=== PATIENT | female | born 1955 | race Caucasian/White ===

== ENCOUNTER 2017-01-31 07:13 | Inpatient (IN) | payer BC ==
[2017-01-13 11:30] VITALS: Ht 165.1 cm; Wt 99.2 kg
--- NOTE | 2017-01-13 11:52 | PAT Medication Instructions ---
Service Date Jan 13, 2017. Current Home Medication List Cholecalciferol (Vitamin D3), 1 TAB PO HS Cyanocobalamin (Vitamin B-12), 1,000 MCG PO QAM Ferrous Sulfate (Iron), 45 MG PO QAM Meloxicam (Mobic), Unknown Dose PO HOLD ONE WEEK PRIOR Multivitamin (Multivitamin), 1 TAB PO HS Pantoprazole (Protonix), 40 MG PO QAM Potassium Chloride (Micro-K Ext Rel), 10 MEQ PO QAM Probiotic Product (Probiotic), 1 CAP PO HS Tramadol (Ultram), 50 MG PO Q8H PRN for Pain Valsartan/Hctz (Diovan Hct), 1 TAB PO QAM Medication Instructions For Your Scheduled Surgery - Hold the following medications 7 days prior to surgery per surgeon's instructions: Meloxicam (Mobic), Unknown Dose PO HOLD ONE WEEK PRIOR - Hold the following medications the morning of surgery: Valsartan/Hctz (Diovan Hct), 1 TAB PO QAM Cyanocobalamin (Vitamin B-12), 1,000 MCG PO QAM Ferrous Sulfate (Iron), 45 MG PO QAM Potassium Chloride (Micro-K Ext Rel), 10 MEQ PO QAM - Take the following medications the morning of surgery with a sip of water OTHERWISE NOTHING TO EAT OR DRINK AFTER MIDNIGHT: Tramadol (Ultram), 50 MG PO Q8H PRN for Pain (may take if needed up to 4 hours prior to surgery) Pantoprazole (Protonix), 40 MG PO QAM - Take the following medications as scheduled the night before surgery: Probiotic Product (Probiotic), 1 CAP PO HS Multivitamin (Multivitamin), 1 TAB PO HS Cholecalciferol (Vitamin D3), 1 TAB PO HS Tramadol (Ultram), 50 MG PO Q8H PRN for Pain If you have any questions please call us at [phone] or [phone] or [phone]
[2017-01-13 12:36] LABS: BASO % 0.5 %; BASO ABS # 0.03 K/uL (0-0.2); COMPLETE YES; EOS % 1.5 %; HEMATOCRIT 36.4 % (37-47); IG% 0.3 %; LYMPH % 20.2 %; LYMPH ABS # 1.32 K/uL (1.2-3.4); MEAN CELL VOLUME 87.1 fL (80-100); MEAN CORPUSCULAR HEMOGLOBIN 29.4 pg (25-34); MEAN CORPUSCULAR HGB CONC 33.8 g/dl (32-36); MEAN PLATELET VOLUME 10.1 fL (7.4-10.4); MONO % 6.4 %; NEUT % 71.1 %; PLATELET COUNT 271 K/uL (130-400); RED BLOOD COUNT 4.18 M/uL (4.2-5.4); WHITE BLOOD COUNT 6.53 K/uL (4.8-10.8)
[2017-01-13 12:36] LABS: URINE APPEARANCE CLEAR (CLEAR); URINE BILIRUBIN NEG (NEG); URINE COLOR YELLOW; URINE NITRITE NEG (NEG); URINE SPECIFIC GRAVITY 1.009 (1.000-1.030); UROBILINOGEN NEG (NEG)
[2017-01-13 12:37] LABS: MANUAL MICROSCOPIC REQUIRED? NO; REVIEW REQ? NO
[2017-01-13 12:47] LABS: PARTIAL THROMBOPLASTIN RATIO 1.2; PROTHROMBIN TIME (PATIENT) 10.7 SECONDS (9.0-12.0)
--- NOTE | 2017-01-13 12:52 | DIAGNOSTIC IMAGING REPORT ---
CHEST PREADMISSION(PA/LAT) CLINICAL HISTORY: Preoperative chest COMPARISON STUDY: No previous studies for comparison. FINDINGS: The cardiac and mediastinal contours are normal. There is no evidence of focal pulmonary consolidation. There is no evidence of failure. No pleural effusions are visualized.[ IMPRESSION: No active disease in the chest. Electronically signed by: George Sandhu M.D. 01/13/2017 12:50 PM Dictated Date/Time: 01/13/2017 12:49 PM
[2017-01-13 13:14] LABS: CALCIUM 9.5 mg/dl (8.5-10.1); CREATININE 0.89 mg/dl (0.60-1.20); POTASSIUM 3.7 mmol/L (3.5-5.1)
--- NOTE | 2017-01-30 11:10 | HISTORY & PHYSICAL EXAMINATION ---
DATE OF ADMISSION: 01/31/2017 CHIEF COMPLAINT: Right hip pain. HISTORY OF PRESENT ILLNESS: Rosa Isela is a 61-year-old female with a 1-year history of pain in her right hip. The patient rates her pain at 9/10. She has pain with her daily activities. She has limited standing and walking tolerance. Pain is worse with weightbearing. The patient is using a cane. She has had injections, anti-inflammatories, tramadol and home physical therapy without relief. She has failed conservative treatment and is scheduled for right total hip arthroplasty. PAST MEDICAL HISTORY: Hypertension, GERD, and osteoarthritis. She denies heart disease, diabetes or DVT. PAST SURGICAL HISTORY: Cholecystectomy and bilateral knee replacement. SOCIAL HISTORY: The patient denies alcohol or tobacco use. She lives in a 2-kraig home. 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 FAMILY HISTORY: Positive for DVT in her mom, status post trauma. MEDICATIONS: Diovan 80/12.5 mg daily, Protonix 40 mg, potassium 10 mEq, Mobic, tramadol 50 mg p.r.n., Centrum Silver 1 daily, vitamin D3, vitamin B12, iron and Culturelle. ALLERGIES: SULFA CAUSES HIVES. DEMEROL CAUSES NAUSEA AND VOMITING. REVIEW OF SYSTEMS: See HPI. Ten other systems reviewed, all negative. PHYSICAL EXAMINATION: VITAL SIGNS: Height 5 feet 5 inches, weight 219 pounds. BMI is 36. GENERAL: This is a well-developed and well-nourished female who is alert and oriented x3. Mood and affect are appropriate. HEENT: Normocephalic and atraumatic. Mucous membranes are moist and intact. NECK: Supple without lymphadenopathy. HEART: Regular rate and rhythm without murmurs, rubs or gallops. LUNGS: Clear to auscultation without wheezes or rhonchi. ABDOMEN: Soft and nontender. Bowel sounds are equal and active. EXTREMITIES: No ecchymosis, redness or warmth. Thigh and calf are soft and nontender. Log roll of the hip reproduces pain in the groin. Range of motion is decreased. She is neurovascularly intact with +5/5 strength. She walks with an antalgic gait. Right lower extremity is shortened. X-RAY: AP and lateral views show joint space narrowing and osteophyte formation. IMPRESSION: Degenerative joint disease, right hip. PLAN: The patient will be admitted for a direct anterior right total hip arthroplasty. We will plan on aspirin for DVT prophylaxis. She will have [facility]. PCP is Dr. Ryland Espinosa.
[~2017-01-31] VITALS: Ht 165.1 cm; Wt 99.2 kg
[2017-01-31] VITALS (9 sets, daily range): BP systolic 128–166; BP diastolic 76–94; PULSE 67–77; TEMP 36.3–36.5; O2SAT 94–100
[2017-01-31] MEDS: TRANEXAMIC ACID INJ 1,000 MG in SODIUM CHLORIDE 0.9% 100ML 100 ML IV SCH ×2 (06:00→06:30)
[~2017-01-31 07:13] MED LIST: ACETAMINOPHEN 500 MG TAB PO SCH; CEFAZOLIN 2000 MG/60 ML D5W 60 ML IV SCH; CHOL1000 PO; CYAN10005 PO; DEXAMETHASONE 4 MG TAB PO SCH; DVN80125 PO; FAMOTIDINE 20 MG TAB PO SCH; FERR1TAB61 PO; GABAPENTIN 300 MG CAP PO SCH; LACTATED RINGER'S 1000ML 1,000 ML IV SCH; LACTATED RINGER'S 1000ML 500 ML IV ONE; LACTATED RINGER'S 1000ML IV SCH; MELO7.5T6 PO; METOCLOPRAMIDE HCL 10 MG TAB PO SCH; MISCCAP80 PO; MULT-506 PO; OXYCODONE HCL 10 MG TABCR (OXYCONTIN) PO SCH; PANT40TA PO; POLYMYXIN B SULFATE 100,000 UNITS in NSS 100ML IR SCH; POTA10CA28 PO; ROPIVACAINE 5MG/ML 30 ML 150 MG, BUPIVACAINE/EPINEPHR 0.5% MPF 30 ML, KETOROLAC TROMETH... INFIL SCH; TRAM-10 PO; VANCOMYCIN INJ 400 MG in NSS 100ML IR SCH
[2017-01-31] MEDS ORDERED: BUPIVACAINE 0.5 % 5 MG/1 ML PF 10ML VIAL ONE (07:23)
[2017-01-31] MEDS ORDERED: DEXAMETHASONE SOD INJ 4 MG/ML VIAL ONE (07:46)
[2017-01-31] MEDS ORDERED: FENTANYL CITRATE INJ 50 MCG/1 ML 2 ML VIAL ONE (07:46)
[2017-01-31] MEDS ORDERED: MIDAZOLAM HCL 1 MG/ML 2ML VIAL ONE ×2 (07:46→07:47)
[2017-01-31] MEDS ORDERED: LIDOCAINE HCL 2% 2 ML VIAL (20MG/ML) ONE (07:46)
[2017-01-31] MEDS ORDERED: PROPOFOL IV EMULSION 10 MG/ML 20 ML VIAL IV ONE ×2 (07:46→11:19)
[2017-01-31] MEDS ORDERED: DOCU-94 PO (08:01)
[2017-01-31] MEDS ORDERED: [UNRECOGNIZED DRUG - REMARK] (08:02)
--- NOTE | 2017-01-31 08:51 | History & Physical Bridge Note ---
H&P Re-Evaluation Bridge Note: I have examined the patient, reviewed the History & Physical and in the interval since the performance of the History & Physical I have noted the following changes of clinical significance: No changes noted
[2017-01-31] MEDS ORDERED: POVIDONE-IODINE OP SOLN 30 ML BTL ONE (09:17)
[2017-01-31] MEDS ORDERED: ORTHO JOINT ANESTHETIC ONE (09:17)
[2017-01-31] MEDS ORDERED: BACITRACIN 50000 UNIT VIAL ONE (09:17)
[2017-01-31] MEDS ORDERED: ONDANSETRON INJ 2 MG/ML 2 ML VIAL ONE (10:36)
[2017-01-31] MEDS ORDERED: ONDANSETRON INJ 2 MG/ML 2 ML VIAL IV PRN ×2 (10:45→11:30)
[2017-01-31] MEDS ORDERED: PHENYLEPHRINE 100MCG/ML 5ML SYR IV PRN (10:45)
[2017-01-31] MEDS ORDERED: ATROPINE SULFATE 0.1 MG/ML 5ML SYR IV PRN (10:45)
[2017-01-31] MEDS ORDERED: KETOROLAC TROMETHAMINE 30 MG/ML VIAL IV. PRN (10:45)
[2017-01-31] MEDS ORDERED: HYDROmorphone INJ 2 MG/ML SYR/VIAL IV PRN (10:45)
[2017-01-31] MEDS ORDERED: EpHEDrine SULFATE INJ 50 MG/ML AMP IV PRN (10:45)
--- NOTE | 2017-01-31 11:24 | [facility] Post Operative Brief Note ---
Immediate Operative Summary Operative Date Jan 31, 2017. Pre-Operative Diagnosis Right Hip Degenerative Joint Disease Post-Operative Diagnosis Right Hip Degenerative Joint Disease OBESITY Procedure(s) Performed Right Total Hip Arthroplasty, Direct Anterior Approach Surgeon Dr. Ravi Rasmussen Digital Sales Representative Surgeon(s) Sarah Herrera PA-C Estimated Blood Loss 125 mL Findings DJD OBESE Specimens A: Right Femoral Head Complication(s) None Disposition Recovery Room / PACU
[2017-01-31] MEDS ORDERED: ALUMINUM/MAGNESIUM/SIMETH (MAALOX MAX) 30 ML UDC PO PRN (11:30)
[2017-01-31] MEDS ORDERED: METOCLOPRAMIDE HCL INJ 5 MG/ML 2 ML VIAL IV PRN (11:30)
[2017-01-31] MEDS ORDERED: SOD PHOSPHATE/SOD BIPHOSPHATE ENEMA 132 ML BTL PR PRN (11:30)
[2017-01-31] MEDS ORDERED: OXYCODONE HCL IR 5 MG TAB (IMMEDIATE RELEASE) PO PRN (11:30)
[2017-01-31] MEDS ORDERED: MoRPHine SULFATE 2 MG/ML CARP IV PRN (11:30)
[2017-01-31] MEDS ORDERED: ZOLPIDEM TARTRATE 5 MG TAB PO PRN (11:30)
[2017-01-31] MEDS ORDERED: BISACODYL 10 MG SUPP PR PRN (11:30)
[2017-01-31] MEDS ORDERED: MAGNESIUM HYDROXIDE SUSP 30 ML UDC PO PRN (11:30)
[2017-01-31] MEDS ORDERED: DiphenhydrAMINE HCL 50 MG/ML VIAL IV PRN (11:30)
--- NOTE | 2017-01-31 12:41 | DIAGNOSTIC IMAGING REPORT ---
SINGLE VIEW PELVIS; SINGLE VIEW RIGHT HIP CLINICAL HISTORY: Postoperative examination. FINDINGS: An AP portable view of the hips and pelvis with a crosstable lateral portable view of the right hip are obtained. A bipolar right hip arthroplasty is in near-anatomic alignment. A single cortical lag screw transfixes the acetabular cup. No acute fracture is identified. There are expected postoperative changes overlying the right hip including subcutaneous gas, a surgical drain, and soft tissue swelling. Moderate arthritic change is seen in the left hip. Sclerotic change is noted in the sacroiliac joints and pubic symphysis. There are numerous pelvic phlebolith. IMPRESSION: Expected postoperative findings status post right hip arthroplasty. No acute fracture is seen. Electronically signed by: Tal Weems M.D. 01/31/2017 12:39 PM Dictated Date/Time: 01/31/2017 12:37 PM
--- NOTE | 2017-01-31 13:36 | Anesthesiology Progress Note ---
Anesthesia Post Op Note Date & Time Jan 31, 2017 at 13:36 Vital Signs Pain Intensity: 0.0 Vital Signs Past 12 Hours Date Time Temp Pulse Resp B/P Pulse Ox O2 Delivery O2 Flow Rate FiO2 01/31/17 12:45 Nasal Cannula 2.0 01/31/17 12:45 98 Nasal Cannula 2.0 01/31/17 12:45 36.3 69 16 139/80 98 Nasal Cannula 2.0 01/31/17 12:25 36.2 69 16 139/80 100 Nasal Cannula 2 01/31/17 12:15 68 16 129/75 100 Nasal Cannula 2 01/31/17 12:05 65 16 129/70 100 Nasal Cannula 2 01/31/17 11:55 78 16 136/96 96 Nasal Cannula 2 01/31/17 11:48 36.2 72 16 138/74 99 Nasal Cannula 2 01/31/17 08:06 36.5 74 18 164/94 99 Room Air Notes Mental Status: alert / awake / arousable, participated in evaluation Pt Amnestic to Procedure: Yes Nausea / Vomiting: adequately controlled Pain: adequately controlled Airway Patency, RR, SpO2: stable & adequate BP & HR: stable & adequate Hydration State: stable & adequate Anesthetic Complications: no major complications apparent
[2017-01-31] MEDS: D5W AND 1/2NSS + 20MEQ KCL 1,000 ML IV SCH ×2 (14:05→23:04)
--- NOTE | 2017-01-31 14:47 | DIAGNOSTIC IMAGING REPORT ---
RIGHT HIP UNILATERAL 1 VIEW CLINICAL HISTORY: RIGHT ANTERIOR HIP Right COMPARISON STUDY: None. FINDINGS: Total fluoroscopy time was 7 seconds. A single fluoroscopic spot image of the right hip. A right total hip arthroplasty which is partially visualized on this study. The hardware appears intact. No fracture or dislocation. IMPRESSION: Fluoroscopy provided for a right total hip arthroplasty. Electronically signed by: Diego Spears M.D. 01/31/2017 2:45 PM Dictated Date/Time: 01/31/2017 2:45 PM
[2017-01-31] MEDS: ACETAMINOPHEN 500 MG TAB PO SCH ×2 (15:35→22:12)
[2017-01-31] MEDS: CEFAZOLIN IV 2,000 MG in DEXTROSE 5% 50ML 50 ML IV SCH ×2 (15:38→23:04)
--- NOTE | 2017-01-31 17:06 | OPERATIVE REPORT ---
DATE OF OPERATION: 01/31/2017 PREOPERATIVE DIAGNOSES: 1. Degenerative arthritis, right hip. 2. Obesity. PROCEDURE: Right total hip replacement. SURGEON: Ravi Rasmussen MD BARREL RAISER HELPER: RYNE Jon ANESTHESIA: Spinal. BLOOD LOSS: 125 mL. REPLACEMENT FLUIDS: 1700 mL crystalloid. DRAINS: Hemovac x2. CULTURES: None. COMPLICATIONS: None. COMPONENTS USED: [employer] hip system: Acetabulum size 48, femur size 4 high offset, femoral head 0, neck length 32 mm. NOTE: RYNE Jon was present and assisted throughout due to the complicated nature of this case. She helped with preparation and set up, first assisted throughout and personally closed the fascial, subcutaneous and skin layers and applied the postoperative dressing. DESCRIPTION OF PROCEDURE: Following satisfactory spinal, the patient was supine. The right leg was placed in the traction device and left leg in the well leg gil. The right leg was prepared with ChloraPrep and draped sterilely. Following a surgical time-out, an anterior approach was performed. The patient had a very large subcutaneous fat layer in her entire thigh and the anterior thigh measuring about 5-6 inches deep. This made the exposure difficult and required additional time and effort to expose the muscle fascia. The muscle fascia was eventually opened in the interval between the sartorius and tensor muscles. The circumflex femoral vessels were identified and ligated and an anterior capsulotomy performed. The hip showed severe degenerative changes. The femoral neck and head were trimmed and removed. The acetabular self-retraining retractor was placed. Acetabular reaming was completed and with fluoroscopic confirmation, a 48 shell was impacted into an anatomic position and secured with a dome screw. Local anesthetic was placed and after irrigation, the polyethylene liner was placed. The femur was then placed into position of external rotation, extension and adduction. Femoral canal was identified and prepared up to the size 4. A trial reduction with a 0 neck length head showed, using fluoroscopy, good fit and fill of the proximal canal and protestant of leg lengths using anatomic landmarks. The hip was dislocated. The trial component removed. The final implant was placed and the hip was irrigated and reduced. A Betadine soak was performed for 5 minutes. The Betadine was then irrigated. The capsule was closed with 1-0 Vicryl interrupted. A drain was then placed. The muscle fascia was closed with 1 Vicryl. The fatty layer was deep and required closure in multiple layers with #2 Vicryl deep, #1 Vicryl more superficial and 2-0 Vicryl. A running subcuticular stitch of 3-0 V-Loc was used for the skin. Dermabond and a dry dressing were applied. The patient was returned to her bed in stable condition. I attest to the content of the Intraoperative Record and any orders documented therein. Any exceptio ns are noted below.
[2017-01-31] MEDS: KETOROLAC TROMETHAMINE 30 MG/ML VIAL IV. SCH ×2 (17:46→23:05)
[2017-01-31] MEDS ORDERED: TRANEXAMIC ACID INJ 1,000 MG in SODIUM CHLORIDE 0.9% 100ML 100 ML IV ONE (18:00)
[2017-01-31] MEDS ORDERED: NON-FORMULARY MEDICATION (Probiotic Product (Probiotic) 1 CAP) PO SCH (21:00)
[2017-01-31] MEDS: CHOLECALCIFEROL 1000 INTER.UNIT TAB PO SCH (21:15)
[2017-01-31] MEDS: SENNA 8.6 MG TAB PO SCH (21:16)
[2017-01-31] MEDS: ASPIRIN 81 MG ECTAB PO SCH (21:16)
[2017-01-31] MEDS: TRAMADOL HCL 50 MG TAB PO PRN (21:20)
[2017-02-01] VITALS (8 sets, daily range): BP systolic 154–172; BP diastolic 74–91; PULSE 73–80; TEMP 36.3–36.6; O2SAT 95–100
[2017-02-01] MEDS: TRAMADOL HCL 50 MG TAB PO PRN (02:40)
[2017-02-01 05:14] LABS: COMPLETE YES; HEMATOCRIT 35.1 % (37-47); IG% 0.3 %; LYMPH % 5.6 %; LYMPH ABS # 0.66 K/uL (1.2-3.4); MEAN CELL VOLUME 88.2 fL (80-100); MEAN CORPUSCULAR HEMOGLOBIN 28.4 pg (25-34); MEAN CORPUSCULAR HGB CONC 32.2 g/dl (32-36); MEAN PLATELET VOLUME 10.1 fL (7.4-10.4); MONO % 6.6 %; NEUT % 87.5 %; PLATELET COUNT 249 K/uL (130-400); RED BLOOD COUNT 3.98 M/uL (4.2-5.4); WHITE BLOOD COUNT 11.72 K/uL (4.8-10.8)
[2017-02-01 05:41] LABS: BUN/CREATININE RATIO 21.3 (10-20); CREATININE 1.1 mg/dl (0.60-1.20); POTASSIUM 4.5 mmol/L (3.5-5.1)
[2017-02-01] MEDS: ACETAMINOPHEN 500 MG TAB PO SCH ×3 (05:53→21:35)
[2017-02-01] MEDS: KETOROLAC TROMETHAMINE 30 MG/ML VIAL IV. SCH ×4 (05:53→23:27)
[2017-02-01] MEDS: HYDROCHLOROTHIAZIDE 25 MG TAB PO SCH (05:58)
[2017-02-01] MEDS: VALSARTAN 80 MG TAB PO SCH (05:59)
[2017-02-01] MEDS ORDERED: NURSING VERBAL MED ORDER ONE (08:15)
--- NOTE | 2017-02-01 08:31 | Orthopedic Progress Note ---
Orthopedic Progress Note Date of Service Feb 01, 2017. Subjective Post OP Day: 1 Reports: feeling well, Denies: SOB, calf pain, chest pain, light headedness, nausea / vomiting Objective calves soft nontender, N/V intact, hip located, dressing C/D/I, A&O x3, toes mobile, hemovac drainage (150/100 cc per shift) Date Time Temp Pulse Resp B/P Pulse Ox O2 Delivery O2 Flow Rate FiO2 02/01/17 07:42 36.5 77 18 172/85 98 Room Air 02/01/17 07:15 Room Air 02/01/17 06:46 164/84 02/01/17 04:23 164/91 02/01/17 04:03 36.3 80 18 171/84 95 Room Air 01/31/17 23:41 36.5 70 16 148/84 98 Room Air 01/31/17 23:15 Room Air 01/31/17 20:39 36.4 67 16 166/82 94 Room Air 01/31/17 15:40 36.3 71 16 145/85 100 Nasal Cannula 2.0 01/31/17 15:30 98 Room Air 01/31/17 14:45 36.3 77 16 149/83 99 Nasal Cannula 2.0 01/31/17 13:45 36.4 70 16 129/79 97 Nasal Cannula 2.0 01/31/17 13:15 36.4 69 16 128/76 100 Nasal Cannula 2.0 01/31/17 12:45 Nasal Cannula 2.0 01/31/17 12:45 98 Nasal Cannula 2.0 01/31/17 12:45 36.3 69 16 139/80 98 Nasal Cannula 2.0 01/31/17 12:25 36.2 69 16 139/80 100 Nasal Cannula 2 01/31/17 12:15 68 16 129/75 100 Nasal Cannula 2 01/31/17 12:05 65 16 129/70 100 Nasal Cannula 2 01/31/17 11:55 78 16 136/96 96 Nasal Cannula 2 01/31/17 11:48 36.2 72 16 138/74 99 Nasal Cannula 2 Laboratory Results 24 Hours: Test 02/01/17 04:50 White Blood Count 11.72 K/uL Red Blood Count 3.98 M/uL Hemoglobin 11.3 g/dL Hematocrit 35.1 % Mean Corpuscular Volume 88.2 fL Mean Corpuscular Hemoglobin 28.4 pg Mean Corpuscular Hemoglobin Concent 32.2 g/dl Platelet Count 249 K/uL Mean Platelet Volume 10.1 fL Neutrophils (%) (Auto) 87.5 % Lymphocytes (%) (Auto) 5.6 % Monocytes (%) (Auto) 6.6 % Eosinophils (%) (Auto) 0.0 % Basophils (%) (Auto) 0.0 % Neutrophils # (Auto) 10.26 K/uL Lymphocytes # (Auto) 0.66 K/uL Monocytes # (Auto) 0.77 K/uL Eosinophils # (Auto) 0.00 K/uL Basophils # (Auto) 0.00 K/uL Assessment & Plan Assessment: POD#1 sp right RAVINDRA Plan: ABDOMINAL BINDER Inhouse Planning Pain Management: PO Tylenol, Oxy IR DVT Prophylaxis: TEDs, SCDs, ASA Discharge Planning Discharge Planning: home with home health (POSSIBLE DC HOME TODAY PENDING HEMOVAC OUTPUT. [facility] NURSES)
--- NOTE | 2017-02-01 08:33 | Discharge Instructions ---
Discharge Instructions Date of Service Feb 01, 2017. Admission Reason for Admission: Right Hip Degenerative Arthritis Discharge Discharge Diagnosis / Problem: SP RIGHT RAVINDRA Discharge Goals Goal(s): Decrease discomfort, Improve function, Increase independence Activity Recommendations Activity Limitations: per Instructions/Follow-up section . Instructions / Follow-Up Instructions / Follow-Up ACTIVITY RECOMMENDATIONS: SELF CARE INSTRUCTIONS AFTER TOTAL HIP REPLACEMENT : Direct Anterior Approach Until the incision and soft tissues around your hip have healed, there is a possibility that the hip prosthesis could dislocate. A. Hip flexion ( Up & Down out of chair or steps ) may be difficult. This is normal. B. Numbness in front of the thigh is also normal for a few weeks. C. Use hand rails when walking on stairs. D. Wear low heeled shoes with non-slip soles. E. Be sure that your floors are free of things that could trip you - throw rugs , electrical cords, small objects. Avoid wet and waxed floors, especially with crutches and canes. F. Try to walk several times a day with rest periods between. G. Continue with all the exercises taught to you in the hospital. Again, make walking a part of your daily routine. SPECIAL CARE INSTRUCTIONS: VERY IMPORTANT TO READ AND REVIEW A. You may still be at risk for phlebitis and blood clots. 1. Wear surgical stockings (GERRY hose) for 2 weeks after surgery to improve circulation and reduce swelling. 2. Take Aspirin 81mg twice daily for 4 weeks or as directed by your doctor. This is your blood thinner. 3. High risk patients may be prescribed a stronger blood thinner if necessary. 4. If you are on Coumadin normally, your family doctor/school psychologist should monitor your blood work. Expect a phone call the day of or the day after bloodwork is drawn to adjust your dosage. B. You must take antibiotics before having dental work, bladder, bowel and other surgery. Your doctor will provide you with a permanent card to carry describing precautions. C. Call [facility] if you have a fever, redness or swelling around the incision, cloudy drainage from incision, or sudden increase in pain in your hip, not relieved by your regular pain medication. D. Please call the office at if you have any concerns or questions about your operation or recovery. * YOU MAY SHOWER, NO TUB BATHS UNTIL CLEARED BY YOUR DOCTOR. - Keep an extra close eye on the top portion of your incision. Be sure to keep clean & dry. * WEAR GERRY HOSE 20 HOURS PER DAY FOR 2 WEEKS. * YOU MAY PROGRESS FROM A WALKER, TO A CANE, TO INDEPENDENT AT YOUR OWN PACE. * MOST PATIENTS WILL HAVE HOME NURSING FOR THERAPY. IF YOU DECIDE TO DO OUTPATIENT PHYSICAL THERAPY, PLEASE SCHEDULE THIS 3 TIMES PER WEEK. * DERMABOND Prineo- This is a mesh tape dressing that is covered with glue. It should remain in place until the incision is properly healed, usually 10-14 days. This dressing is designed to naturally slough off. You may trim the excess mesh tape as it peels off. Incision may be briefly wet in a shower. Dry immediately by blotting with a clean, dry towel. Do not bath or swim until instructed by your doctor. Do not scratch, rub, or pick at the dressing. Do not apply any topical ointments or lotions until dressing is completely removed and/or instructed by your doctor. There may be a small piece of suture material at one end of your incision. Do not pull or trim this. If it is bothersome or catching on clothing, you may cover it with a band-aid. WEAR ABDOMINAL BINDER MUCH POSSIBLE TO HELP WITH WOUND HEALING. FOLLOW UP VISIT: If appointment is not already scheduled: Please call [facility] to make a follow-up appointment for 2 weeks after your surgery at . Current Hospital Diet Patient's current hospital diet: Regular Diet Discharge Diet Recommended Diet: Regular Diet Procedures Procedures Performed: Right Total Hip Arthroplasty, Direct Anterior Approach Pending Studies Studies pending at discharge: no Medical Emergencies . Who to Call and When: Medical Emergencies: If at any time you feel your situation is an emergency, please call 911 immediately. . Non-Emergent Contact Non-Emergency issues call your: Surgeon . "Provider Documentation" section prepared by Sarah Herrera. . VTE Core Measure Inpt VTE Proph given/why not?: Other Anticoagulation, T.E.D. Stockings, SCD's [place] Drug Monitoring Program Search Results: patient reviewed within database, no issues identified
[2017-02-01] MEDS ORDERED: SNK PO (08:35)
[2017-02-01] MEDS ORDERED: ONDA8TAB6 PO (08:35)
[2017-02-01] MEDS ORDERED: ASPEC81 PO (08:35)
[2017-02-01] MEDS ORDERED: ACET-1138 PO (08:35)
[2017-02-01] MEDS ORDERED: RXC5 PO (08:35)
[2017-02-01] MEDS ORDERED: VALSARTAN 80 MG TAB PO SCH (09:00)
[2017-02-01] MEDS ORDERED: HYDROCHLOROTHIAZIDE 25 MG TAB PO SCH (09:00)
[2017-02-01] MEDS: PANTOprazole SOD 40 MG TAB PO SCH (09:06)
[2017-02-01] MEDS: MULTIVITAMIN TAB PO SCH (09:06)
[2017-02-01] MEDS: ASPIRIN 81 MG ECTAB PO SCH ×2 (09:06→20:48)
[2017-02-01] MEDS: POTASSIUM CHLORIDE 10 MEQ TABCR PO SCH (09:06)
[2017-02-01] MEDS: CYANOCOBALAMIN 500 MCG TAB (VIT B-12) PO SCH (09:07)
[2017-02-01] MEDS: FERROUS SULFATE 325 MG TAB PO SCH (09:07)
--- NOTE | 2017-02-01 13:01 | Anesthesiology Progress Note ---
Anesthesia Post Op Note Date & Time Feb 01, 2017 at 13:00 Vital Signs Pain Intensity: 5.0 Vital Signs Past 12 Hours Date Time Temp Pulse Resp B/P Pulse Ox O2 Delivery O2 Flow Rate FiO2 02/01/17 10:56 36.6 73 18 154/81 100 Room Air 02/01/17 10:22 79 98 02/01/17 07:42 36.5 77 18 172/85 98 Room Air 02/01/17 07:15 Room Air 02/01/17 06:46 164/84 02/01/17 04:23 164/91 02/01/17 04:03 36.3 80 18 171/84 95 Room Air Notes Mental Status: alert / awake / arousable, participated in evaluation Pt Amnestic to Procedure: Yes Nausea / Vomiting: adequately controlled Pain: adequately controlled Airway Patency, RR, SpO2: stable & adequate BP & HR: stable & adequate Hydration State: stable & adequate Neuraxial Anesthesia: sensory block resolved Anesthetic Complications: no major complications apparent
[2017-02-01] MEDS: SENNA 8.6 MG TAB PO SCH (20:48)
[2017-02-01] MEDS: CHOLECALCIFEROL 1000 INTER.UNIT TAB PO SCH (20:48)
[2017-02-02] MEDS: TRAMADOL HCL 50 MG TAB PO PRN ×2 (00:43→11:13)
[2017-02-02] MEDS: KETOROLAC TROMETHAMINE 30 MG/ML VIAL IV. SCH (05:56)
[2017-02-02] MEDS: ACETAMINOPHEN 500 MG TAB PO SCH (05:56)
[2017-02-02] MEDS ORDERED: VALSARTAN 80 MG TAB PO SCH (06:00)
[2017-02-02 06:02] VITALS: BP 175/94; PULSE 83
[2017-02-02] MEDS: VALSARTAN 80 MG TAB PO SCH (06:04)
[2017-02-02] MEDS: HYDROCHLOROTHIAZIDE 25 MG TAB PO SCH (06:04)
[2017-02-02 07:31] VITALS: BP 152/79; PULSE 90; TEMP 36.8; O2SAT 97
--- NOTE | 2017-02-02 08:05 | DISCHARGE SUMMARY ---
DISCHARGE DIAGNOSIS: Degenerative joint disease, right hip. SECONDARY DIAGNOSIS: None. CONSULTS: None. COMPLICATIONS: None. PROCEDURE: The patient underwent a direct anterior right total hip arthroplasty with Dr. Rasmussen on 01/31/2017. BRIEF HISTORY: Please see previously dictated history and physical. HOSPITAL SUMMARY: The patient was admitted on the above day for the above procedure. Procedure went without complication. Postop day 1, the patient was feeling well without complaints. She denied chest pain or shortness of breath. Vital signs were stable. She was afebrile. Dressing was clean, dry and intact. She was neurovascularly intact. Calves were soft and nontender. Hip was located. Hemovac drained 150 and 100 mL per shift. Hemoglobin was 11.3. The patient began physical therapy per protocol. She was instructed to wear her abdominal binder at all times. Postop day 2, the patient continued to improve. She denied chest pain or shortness of breath. Vital signs were stable. She was afebrile. Dressing was clean, dry and intact. She was neurovascularly intact. Calves were soft and nontender. She continued to progress with physical therapy and was discharged home later that day in stable condition. For further review please see the chart. Lab, x-ray data and discharge instructions as per chart.
[2017-02-02] MEDS: CYANOCOBALAMIN 500 MCG TAB (VIT B-12) PO SCH (08:24)
[2017-02-02] MEDS: FERROUS SULFATE 325 MG TAB PO SCH (08:24)
[2017-02-02] MEDS: ASPIRIN 81 MG ECTAB PO SCH (08:24)
[2017-02-02] MEDS: PANTOprazole SOD 40 MG TAB PO SCH (08:25)
[2017-02-02] MEDS: MULTIVITAMIN TAB PO SCH (08:25)
[2017-02-02] MEDS: POTASSIUM CHLORIDE 10 MEQ TABCR PO SCH (08:25)
[2017-02-02 10:26] VITALS: BP 152/79; PULSE 90; TEMP 36.8; O2SAT 97
== END 2017-02-02 11:42 | disposition home health service (06) | DRG 470 ==
LOC: ENRESERVDT → ENRESERVTM → C.ACU 07:13 → C.3E 11:27
PROVIDERS: ADMIT Orthopaedic Surgery; ATTEND Orthopaedic Surgery
PROC: 0SR904Z Replacement of Right Hip Joint with Ceramic on Polyethylene Synthetic Substitute, Open Approach (ICD-10-PCS; principal; 2017-01-31 09:45)
DX: M16.11 Unilateral primary osteoarthritis, right hip (principal); K21.9 Gastro-esophageal reflux disease without esophagitis; Z96.653 Presence of artificial knee joint, bilateral; I10 Essential (primary) hypertension; M17.0 Bilateral primary osteoarthritis of knee; E66.9 Obesity, unspecified; Z68.36 Body mass index [BMI] 36.0-36.9, adult